=== PATIENT | female | born 1995 | race Caucasian/White ===

== ENCOUNTER 2022-04-15 17:24 | Emergency (ER) | payer MEDICAID ==
[~2022-04-15] VITALS: Ht 157.5 cm; Wt 61.4 kg
[2022-04-15] MEDS ORDERED: PredniSONE 20 MG TABLET PO ONE (18:00)
[2022-04-15] MEDS ORDERED: DiphenhydrAMINE HCL 50 MG CAPSULE PO ONE (18:00)
[2022-04-15] MEDS ORDERED: EPIN0.3P3 IM (19:52)
[2022-04-15] MEDS ORDERED: PRED-554 PO (19:52)
[2022-04-15] MEDS ORDERED: DIPH50 PO (19:52)
[2022-04-15 20:22] VITALS: BP 124/68
== END 2022-04-15 20:34 | disposition home or self-care (01) ==
LOC: EMS 17:30
DX: T78.1XXA Other adverse food reactions, not elsewhere classified, initial encounter (principal); T78.49XA Other allergy, initial encounter; L29.9 Pruritus, unspecified; X58.XXXA Exposure to other specified factors, initial encounter
CPT/HCPCS: 99283; J7512